=== PATIENT | male | born 1990 | race Hispanic/Latino ===

== ENCOUNTER 2019-02-20 13:47 | Emergency (ER) | payer BC ==
[2019-02-20] MEDS ORDERED: NA CHLORIDE 0.9% 1,000 ML ONE (14:30)
[2019-02-20] MEDS ORDERED: ACETAMINOPHEN 325 MG TABLET ONE (14:30)
[2019-02-20 14:56] LABS: Absolute Lymphocytes (CBC) 0.4 K/uL (0.7-4.9); Basophils % 0.3 % (0-1.3); Hematocrit 41.4 % (39.6-49.0); Lymphocytes % 3.9 % (15.3-44.8); MPV 8.2 fL (7.6-11.3); RBC Red Blood Cell Count 4.55 M/uL (4.33-5.43)
[2019-02-20 15:10] LABS: Albumin 4.4 g/dL (3.4-5.0); Bilirubin Direct 0.2 mg/dL (0-0.2); Bilirubin Total 0.6 mg/dL (0.2-1.0); Potassium 3.8 mmol/L (3.5-5.1)
--- NOTE | 2019-02-20 15:24 | ER ---
Nurse's Notes [facility] Name: Shane Marie Age: 28 yrs Sex: Male : 1990 Arrival Date: 02/20/2019 Time: 13:50 Bed 5 Private MD: Diagnosis: Diarrhea, unspecified Presentation: 02/20 14:01 Presenting complaint: N/D, headache, body aches, and diffuse abdominal pain since 0300 hb today. Sent from [facility]. Ate oysters yesterday for lunch. Transition of care: patient was not received from another setting of care. Onset of symptoms was February 20, 2019. Risk Assessment: Do you want to hurt yourself or someone else? Patient reports no desire to harm self or others. Initial Sepsis Screen: Does the patient meet any 2 criteria? Systolic BP < 90 mmHg. No. Patient's initial sepsis screen is negative. Care prior to arrival: Medication(s) given: zofran at 1100, Motrin at 1000. 14:01 Method Of Arrival: Ambulatory hb 14:01 Acuity: MARIANN 3 hb 15:45 Initial Sepsis Screen: Does the patient have a suspected source of infection? No. jl7 Patient's initial sepsis screen is negative. Historical: - Allergies: 14:03 No Known Allergies; hb - Home Meds: 14:03 None [Active]; hb - PMHx: 14:03 None; hb - PSHx: 14:03 Nose; hb - Immunization history:: Adult Immunizations up to date. - Social history:: Smoking status: Patient/guardian denies using tobacco. - Ebola Screening: : No symptoms or risks identified at this time. Screenin:23 Abuse screen: Denies threats or abuse. Denies injuries from another. Nutritional jl7 screening: No deficits noted. Tuberculosis screening: No symptoms or risk factors identified. Fall Risk IV access (20 points). Total Hall Fall Scale indicates No Risk (0-24 pts). Assessment: 14:23 General: Appears in no apparent distress. uncomfortable, Behavior is calm, cooperative, jl7 appropriate for age. Pain: Complains of pain in all over Pain currently is 8 out of 10 on a pain scale. Quality of pain is described as aching, Pain began 1 day ago. Is continuous. Neuro: Level of Consciousness is awake, alert, obeys commands, Oriented to person, place, time, situation. Cardiovascular: Patient's skin is warm and dry. Respiratory: Airway is patent Respiratory effort is even, unlabored, Respiratory pattern is regular, symmetrical. GI: Abdomen is flat, non-distended, Reports diarrhea, nausea. Derm: Skin is pink, warm \T\ dry. Vital Signs: 14:03 BP 148 / 85; Pulse 111; Resp 16; Temp 100.3; Pulse Ox 100% on R/A; Weight 86.18 kg; hb Height 5 ft. 9 in. (175.26 cm); Pain 8/10; 14:03 Body Mass Index 28.06 (86.18 kg, 175.26 cm) hb ED Course: 13:50 Patient arrived in ED. mr 14:02 Triage completed. hb 14:03 Arm band placed on. hb 14:07 Belem Rogers RN is Primary Nurse. jl7 14:10 Juan Luis Hernandez NP is PHCP. pm1 14:10 Ko Gee MD is Attending Physician. pm1 14:23 Patient has correct armband on for positive identification. Bed in low position. Call jl7 light in reach. Side rails up X 1. Pulse ox on. NIBP on. 15:44 No provider procedures requiring assistance completed. IV discontinued, intact, jl7 bleeding controlled, No redness/swelling at site. Pressure dressing applied. Administered Medications: 14:44 Drug: NS 0.9% 1000 ml Route: IV; Rate: 1000 ml; Site: left antecubital; jl7 14:44 Drug: Tylenol 650 mg Route: PO; jl7 Outcome: 15:23 Discharge ordered by . pm1 15:44 Discharged to home ambulatory. jl7 15:44 Condition: stable 15:44 Discharge instructions given to patient, Instructed on discharge instructions, follow up and referral plans. medication usage, Demonstrated understanding of instructions, follow-up care, medications, Prescriptions given X 3. 15:45 Patient left the ED. jl7 Signatures: Jina Reis Juan Luis Hernandez, WIRE GALVANIZER WIRE GALVANIZER pm1 Maral Perez RN RN Belem Rogers RN RN jl7 Corrections: (The following items were deleted from the chart) 14:04 14:01 Presenting complaint: N/D, headache, body aches, and diffuse abdominal pain since hb 0300 today. Sent from [facility] hb
--- NOTE | 2019-02-20 15:24 | EDPHYS ---
Physician Documentation [facility] Name: Shane Marie Age: 28 yrs Sex: Male : 1990 Arrival Date: 02/20/2019 Time: 13:50 Bed 5 Private MD: ED Physician Ko Gee HPI: 02/20 15:19 This 28 yrs old Male presents to ER via Ambulatory with complaints of Fever, pm1 Diarrhea, Abdominal Cramping. 15:20 The patient presents to the emergency department with diarrhea, 5 times since the onset pm1 of symptoms, abdominal pain, of the abdomen diffusely, described as crampy, and does not radiate, yesterday with diarrhea. No abdominal pain present to today. Onset: The symptoms/episode began/occurred yesterday. Possible causes: bad food exposure, fried oysters. The symptoms are aggravated by nothing. The symptoms are alleviated by had some nausea that improved with old prescription of Zofran yesterday. Associated signs and symptoms: Pertinent positives: abdominal pain, diarrhea, fever, nausea, Pertinent negatives: dysuria, vomiting. Severity of symptoms: in the emergency department the symptoms have improved Pain is currently a 0 / 10. The patient has been recently seen at an urgent care, for similar complaints, and was sent to the [facility] Emergency Department for further evaluation. Patient ate fried oysters for lunch yesterday and he believes that it is the cause for his diarrhea and fever. Historical: - Allergies: 14:03 No Known Allergies; hb - Home Meds: 14:03 None [Active]; hb - PMHx: 14:03 None; hb - PSHx: 14:03 Nose; hb - Immunization history:: Adult Immunizations up to date. - Social history:: Smoking status: Patient/guardian denies using tobacco. - Ebola Screening: : No symptoms or risks identified at this time. ROS: 15:25 Constitutional: Positive for fever, tmax 99.1 per patient. pm1 Vital Signs: 14:03 BP 148 / 85; Pulse 111; Resp 16; Temp 100.3; Pulse Ox 100% on R/A; Weight 86.18 kg; hb Height 5 ft. 9 in. (175.26 cm); Pain 8/10; 14:03 Body Mass Index 28.06 (86.18 kg, 175.26 cm) hb MDM: 14:21 Patient medically screened. pm1 15:22 Data reviewed: vital signs. Data interpreted: Pulse oximetry: on room air is 100 %. pm1 Interpretation: normal. Counseling: I had a detailed discussion with the patient and/or guardian regarding: the historical points, exam findings, and any diagnostic results supporting the discharge/admit diagnosis, lab results, the need for outpatient follow up, to return to the emergency department if symptoms worsen or persist or if there are any questions or concerns that arise at home. 15:43 ED course: No abdominal tenderness present on examination. No justification for CT of pm1 abd/pelvis. Patient currently without any pain or any more episodes of diarrhea. 02/20 14:26 Order name: Basic Metabolic Panel; Complete Time: 15:15 pm1 02/20 14:26 Order name: CBC with Diff pm1 02/20 14:26 Order name: Creatinine for Radiology; Complete Time: 15:15 pm1 02/20 14:26 Order name: Hepatic Function; Complete Time: 15:15 pm1 02/20 14:26 Order name: Lipase; Complete Time: 15:15 pm1 02/20 14:26 Order name: IV Saline Lock; Complete Time: 14:44 pm1 02/20 14:26 Order name: Labs collected and sent; Complete Time: 14:44 pm1 Administered Medications: 14:44 Drug: NS 0.9% 1000 ml Route: IV; Rate: 1000 ml; Site: left antecubital; jl7 14:44 Drug: Tylenol 650 mg Route: PO; jl7 Disposition: 02/21 07:05 Co-signature as Attending Physician, Ko Gee MD I agree with the assessment and kdr plan of care. Disposition: 02/20/19 15:23 Discharged to Home. Impression: Diarrhea, unspecified. - Condition is Stable. - Discharge Instructions: Food Choices to Help Relieve Diarrhea, Adult, Diarrhea, Adult, Food Poisoning and Marine Toxins. - Prescriptions for Doxycycline Hyclate 100 mg Oral Tablet - take 1 tablet by ORAL route every 12 hours; 20 tablet. Bentyl 20 mg Oral Tablet - take 1 tablet by ORAL route every 6 hours As needed; 20 tablet. Zofran 4 mg Oral Tablet - take 1 tablet by ORAL route every 12 hours As needed; 20 tablet. - Medication Reconciliation Form, Thank You Letter, Antibiotic Education, Prescription Opioid Use form. - Work release form (02/20/19 15:46). pm1 - Follow up: Emergency Department; When: As needed; Reason: Worsening of condition. Follow up: Private Physician; When: 2 - 3 days; Reason: Recheck today's complaints, Continuance of care, Re-evaluation by your physician. - Problem is new. - Symptoms have improved. Signatures: Dispatcher [employer] EDMS Ko Gee MD MD kdr Marinas, Patrick, NP STAMP PRESS OPERATOR pm1 Maral Perez, RN RN Belem Rogers RN RN jl7 Corrections: (The following items were deleted from the chart) 02/20 15:45 15:23 02/20/2019 15:23 Discharged to Home. Impression: Diarrhea, unspecified. Condition jl7 is Stable. Forms are Medication Reconciliation Form, Thank You Letter, Antibiotic Education, Prescription Opioid Use. Follow up: Emergency Department; When: As needed; Reason: Worsening of condition. Follow up: Private Physician; When: 2 - 3 days; Reason: Recheck today's complaints, Continuance of care, Re-evaluation by your physician. Problem is new. Symptoms have improved. pm1
[2019-02-20 15:55] VITALS: BP 148/85; TEMP 100.3; O2SAT 100
[2019-02-20 18:02] LABS: Platelet Estimate ADEQ
[2019-02-20 18:03] LABS: Blood Morphology Comment NOT SEEN (NOT SEEN)
== END 2019-02-20 15:45 | disposition home or self-care (01) ==
LOC: ER 13:47
DX: R19.7 Diarrhea, unspecified (principal)
CPT/HCPCS: 85025; 80048; 36415; 80076; 83690; 99283; J7030